=== PATIENT | male | born 1955 | race Caucasian/White ===

== ENCOUNTER 2017-05-29 05:41 | Day surgery (SDC) | payer BC ==
--- NOTE | 2017-05-28 18:23 | PDGENHP ---
History and Physical - Chief Complaint left inguinal pain - History of Present Illness 62yo M, first noticed pain in the L groin a few weeks ago when coughing with a URI. Subsequently saw his PCP who diagnosed a LIH. Pt states that the area is slightly tender and becoming more noticeable. Denies any obstructive symptoms. History Information - Allergies/Home Medication List Allergies/Adverse Reactions: No Known Allergies Allergy (Verified 02/02/15 14:45) Home Medications: Plavix 02/02/15 [Last Taken Unknown] I have personally reviewed and updated: medical history, social history, surgical history - Social History Smoking Status: Never smoked Review of Systems Review of Systems: ROS: 10pt was reviewed & negative except for what was stated in HPI & below Physical Exam Physical Exam: Constitutional: no apparent distress, appears nourished, not in pain Eyes: PERRL, anicteric sclera, EOMI Ears, Nose, Mouth, Throat: moist mucous membranes, hearing normal, ears appear normal, no oral mucosal ulcers Cardiovascular: regular rate and rhythym, no murmur, rub, or gallop, No edema Respiratory: no respiratory distress, no rales or rhonchi, clear to auscultation Gastrointestinal: normoactive bowel sounds, soft, non-tender abdomen, other ( minimally tender reducible left inguinal hernia ) Genitourinary: no bladder fullness, no bladder tenderness Skin: warm, normal color, no rashes or abrasions, no fluctuance, no induration, No mottled Musculoskeletal: full muscle strength, no muscle tenderness, normal joint ROM, no joint effusions Psychiatric: interacting appropriately, not anxious, not encephalopathic, thought process linear Lymph, Heme, Immunologic: no cervical LAD, no supraclavicular LAD Assessment & Plan Assessment: left inguinal hernia Plan: OR for robotic assisted LIH, RBJessica discussed. Pt will be off plavix 5 days prior to OR
[2017-05-29] MEDS ORDERED: ceFAZolin 2 GM/SWFI 2 GM/20 ML SYR IVP ONE (05:53)
[2017-05-29] MEDS ORDERED: LR 1,000 ML IV ONE (05:54)
[2017-05-29] MEDS ORDERED: LIDOCAINE 1% 2 ML INJ ID PRN (05:54)
--- NOTE | 2017-05-29 06:09 | PDHPUP ---
History & Physical Update H&P update statement: This history and physical update is based on an assessment of the patient which was completed after admission or registration (within 24 hours), but prior to the surgery/procedure. H&P update: H&P reviewed & patient examined, no change in patient's condition since H&P completed
[2017-05-29] MEDS ORDERED: BUPIVACAINE 0.25% 30 ML SDV ONE (06:50)
[2017-05-29] MEDS ORDERED: ONDANSETRON 4 MG/2 ML VIAL IVP PRN (06:54)
[2017-05-29] MEDS ORDERED: NALOXONE HCL 0.4 MG/ML INJ IVP PRN (06:54)
[2017-05-29] MEDS ORDERED: MIDAZOLAM 2 MG/2 ML VIAL IVP ONE (06:54)
[2017-05-29] MEDS ORDERED: ACETAMINOPHEN 500 MG TAB PO PRN (06:54)
[2017-05-29] MEDS ORDERED: ALBUTEROL 3 ML DEYVIAL IH PRN (06:54)
[2017-05-29] MEDS ORDERED: HYDROmorphONE/DILAUDID 1 MG/ML INJ IVP PRN (06:54)
[2017-05-29] MEDS ORDERED: OXYCODONE/APAP 5/325 TAB PO PRN (06:54)
--- NOTE | 2017-05-29 06:56 | PDANEPAE ---
ANE History of Present Illness Inguinal Hernia ANE Past Medical History - Cardiovascular History Hx Hypertension: Yes Hx Arrhythmias: No Hx Chest Pain: No Hx Coronary Artery / Peripheral Vascular Disease: Yes Hx CHF / Valvular Disease: No Hx Palpitations: No Cardiovascular History Comment: [place] - CORONARY ARTERY STENT PLACEMENT X2 (2014). HYPERLIPIDEMIA - Pulmonary History Hx COPD: No Hx Asthma/Reactive Airway Disease: No Hx Recent Upper Respiratory Infection: No Hx Oxygen in Use at Home: No Hx Sleep Apnea: No Sleep Apnea Screening Result - Last Documented: Negative - Neurologic History Hx Cerebrovascular Accident: No Hx Seizures: No Hx Dementia: No - Endocrine History Hx Diabetes: No - Renal History Hx Renal Disorders: No - Liver History Hx Hepatic Disorders: No - Neurological & Psychiatric Hx Hx Neurological and Psychiatric Disorders: No - Cancer History Hx Cancer: No - Congenital Disorder History Hx Congenital Disorders: No - GI History Hx Gastrointestinal Disorders: No - Other Health History Other Health History: NEG - Chronic Pain History Chronic Pain: No - Surgical History Prior Surgeries: STENTS X2 CARDIAC PROCEDURE. 2007. WRIST REPAIR ANE Review of Systems Review of systems is: negative Review of Systems: - Exercise capacity METS (RN): 6 METS ANE Patient History - Allergies Allergies/Adverse Reactions: No Known Allergies Allergy (Verified 02/02/15 14:45) - Home Medications Home Medications: Plavix 02/02/15 [Last Taken Unknown] - NPO status NPO Since - Liquids (Date): 05/28/17 NPO Since - Liquids (Time): 19:30 NPO Since - Solids (Date): 05/28/17 NPO Since - Solids (Time): 19:30 - Smoking Hx Smoking Status: Never smoked - Family Anes Hx Family Hx Anesthesia Complications: NEG ANE Labs/Vital Signs - Vital Signs Blood Pressure: 118/69 Heart Rate: 54 Respiratory Rate: 14 O2 Sat (%): 94 Height: 182.88 cm Weight: 77.111 kg ANE Physical Exam - Airway Neck exam: FROM Mallampati Score: Class 2 Mouth exam: normal dental/mouth exam - Pulmonary Pulmonary: clear to auscultation - Cardiovascular Cardiovascular: regular rate and rhythym - ASA Status ASA Status: II ANE Anesthesia Plan Anesthesia Plan: general endotracheal anesthesia
[2017-05-29] MEDS ORDERED: fentaNYL 100 MCG/2 ML INJ ONE ×2 (07:06→09:08)
[2017-05-29] MEDS ORDERED: PROPOFOL 200 MG/20 ML VIAL ONE (07:06)
[2017-05-29] MEDS ORDERED: LIDOCAINE 2% 5 ML SDV ONE (07:07)
[2017-05-29] MEDS ORDERED: ROCURONIUM 50 MG/5 ML VIAL ONE ×2 (07:07→08:24)
[2017-05-29] MEDS ORDERED: DEXAMETHASONE 4 MG/ML VIAL ONE ×2 (07:09)
[2017-05-29] MEDS ORDERED: ONDANSETRON 4 MG/2 ML VIAL ONE ×2 (07:10→08:59)
[2017-05-29] MEDS ORDERED: RANITIDINE 50 MG/2 ML VIAL ONE (07:10)
[2017-05-29] MEDS ORDERED: SUGAMMADEX SODIUM 200 MG/2 ML VIAL IVP ONE (08:29)
--- NOTE | 2017-05-29 08:47 | POSTANESTH ---
Post Anesthetic Evaluation Cardiovascular Status: Normal, Stable Respiratory Status: Normal, Stable Level of Consciousness/Mental Status: Can Participate in Eval, Alert and Oriented Pain Control: Adequate, Prn Tx Ordered Nausea/Vomiting Control: Adequate, Prn Tx Ordered Complications Possibly Related to Anesthesia: None Noted
--- NOTE | 2017-05-29 09:04 | POSTOPPROG ---
Post Op Note Date of Operation: 05/29/17 Surgeon: Yunier Pink Extractor Operator: Loi PAC Anesthesiologist: Tao Anesthesia: GET(General Endotracheal) Pre-op Diagnosis: left inguinal hernia Post-op Diagnosis: same Procedure: Robotic assisted laparoscopic LIH Findings: large indirect LIH Inf/Abcess present in the surg proc area at time of surgery?: No EBL: Minimal
[2017-05-29] MEDS: fentaNYL 100 MCG/2 ML INJ IVP PRN ×2 (09:10→09:22)
[2017-05-29 09:53] VITALS: TEMP 97.9
[2017-05-29 10:24] VITALS: BP 141/74; PULSE 72; RESP 12; O2SAT 94
--- NOTE | 2017-05-29 13:27 | GOP ---
[f rep st] OPERATIVE REPORT DATE OF OPERATION: 05/29/2017 SURGEON: Yunier Pink MD KEY WORKER: Rosibel Monsivais, MELANI ANESTHESIA: General endotracheal. ANESTHESIOLOGIST: Jhoan Burger DO PREOPERATIVE DIAGNOSIS: Symptomatic left inguinal hernia. POSTOPERATIVE DIAGNOSIS: Symptomatic left inguinal hernia. PROCEDURE PERFORMED: Robotic assisted laparoscopic hernia repair with mesh. FINDINGS: Sizeable left sided indirect defect completely reduced, 3D Bard light mesh, large size. SPECIMENS: None. ESTIMATED BLOOD LOSS: 5 cc. DESCRIPTION OF PROCEDURE: The patient was greeted in the preoperative suite. Once again, risks, benefits, and alternatives were discussed. The consent was signed. He was then brought back to the operative suite, placed on the OR table in a supine position. After all anesthesia machines including SCDs were on and functioning, a [employer] time-out was performed. After successful induction of general anesthesia, the patient's abdomen was prepped and draped in typical sterile fashion. I commenced the procedure making a supraumbilical cutdown through which the Veress needle was passed. I achieved pneumoperitoneum to 15 mmHg CO2 through which a 5 mm Visiport was placed. Once successfully in the abdomen, I placed 2 additional 8 mm trocars 1 in the left and 1 in the right upper quadrant, both under direct visualization and upsized my supraumbilical port to an 8 as well. The patient was then placed in gentle Trendelenburg position and the robot was docked. I first placed my attention toward the left inguinal where a defect was noted. I briefly inspected the right and found no gross defects. I made my peritoneal flap and entered the preperitoneal cavity. I carried my dissection from a lateral to medial approach , identified Houston's ligament and successfully reduced the large indirect hernia sac while protecting the cord structures and medial vasculature. I made my peritoneal flap large enough laterally and down to the visceral sac inferiorly. I then placed my mesh into the area and I tacked it to Houston's ligament using 2 interrupted 2-0 Vicryl stitches and then on either side of the inferior epigastric vessels with the same stitch. I then closed my peritoneal defect with a running 2-0 V-Loc suture noting excellent peritoneal reapproximation. Pneumoperitoneum was then evacuated. Ports were removed and closed with 4-0 Monocryl over which Dermabond was placed. The patient was then extubated in the operative suite and taken to the PACU in satisfactory condition. DRAINS: None. COUNTS: All counts were reported as correct x2. /[id number]/MODL MTDD
== END 2017-05-29 10:38 | disposition home or self-care (01) ==
LOC: FSGY 05:41
PROVIDERS: ATTEND Surgery
DX: K40.90 Unilateral inguinal hernia, without obstruction or gangrene, not specified as recurrent (principal); E78.5 Hyperlipidemia, unspecified; I25.10 Atherosclerotic heart disease of native coronary artery without angina pectoris; Z95.5 Presence of coronary angioplasty implant and graft
CPT/HCPCS: C1781; J0171; J0690; J1100; J2250; J2405; J2704; J2780; J3010

== ENCOUNTER → 2018-08-15 | Outpatient (CLI) | payer BC | LOC: BMCIMAGING 10:35 | PROVIDERS: ATTEND Orthopaedic Surgery | DX: M16.0 Bilateral primary osteoarthritis of hip (principal) ==